=== PATIENT | female | born 1995 | race Caucasian/White ===

== ENCOUNTER 2016-10-14 15:10 | Emergency (ER) | payer MEDICAID ==
[2016-10-14 15:53] LABS: Urine Bilirubin Negative (NEGATIVE); Urine Blood Negative /ul (NEGATIVE); Urine Ketone Negative (NEGATIVE); Urine Nitrite Negative (NEGATIVE); Urine Protein Negative (NEGATIVE); Urine Specific Gravity 1.025 SP.GR. (1.005-1.010); Urine Urobilinogen Normal (NORMAL)
[2016-10-14 16:02] LABS: Urine Appearance Clear; Urine Bacteria TRACE; Urine Color Yellow; Urine RBC None Seen /hpf (0-5); Urine WBC None Seen /hpf (0-5)
[2016-10-14 17:43] VITALS: BP 146/84
--- NOTE | 2016-10-14 17:55 | ERNOTE ---
Back Pain ER HPI Date of Service: 10/14/16 Presenting Symptoms: injury/pain to back Time Seen by Provider: 10/14/16 17:54 Source: patient Exam Limitations: no limitations Immunizations: IMMUNIZATION HX Immunizations Up to Date Yes History of Influenza Vaccine No Hx Pneumococcal Vaccination No Allergies/Adverse Reactions: Allergies No Known Allergies Allergy (Verified 02/22/16 08:35) Home Medications: HOME MEDICATIONS Metaxalone [Skelaxin] 800 mg PO TID #15 tablet 10/14/16 [Last Taken Unknown] Narrative: PT HAS C/O MOSTLY RIGHT SIDED LOW BACK PAIN FOR THREE WEEKS SEEMINGLY STARTING AFTER SHE LIFTED HER 3 YO CHILD. IT HAS BEEN BOTHERING HER SINCE . SHE HAS TRIED AN OCC. TYLENOL AND OCC ICY HOT USE AND SOME STRETCHES BUT IT IS NOT BETTER. NO KNOWN TRAUMA. 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 NO RADICULAR PAIN. NO BOWEL OR BLADDER DYSFUNCTION. HER ONLY OTHER MED IS BCP. STATES SHE IS NOT . Timing: Reports: constant Quality/Severity: Reports: moderate, aching Location of pain: Reports: lower back, no radiation Activities at Onset: Reports: activity - LIFTING Recent Injury?: Reports: no Possible Precipitating Factor: Reports: lifting Modifying Factors - (Worsens): Reports: movement flexion - LIFTING , GETTING OUT OF BED OF CHAIR. Associated Symptoms: Denies: fever/chills, constipation/incontinence, problems urinating, difficulty walking, numbess/weakness in legs Prior Treament: Reports: other - ONLY INTERMITTENT HOME TREATMENT ABOVE. Review of Systems - Review of Systems Constitutional: Present: See HPI Respiratory: Present: no symptoms reported Cardiology: Present: no symptoms reported Gastrointestinal/Abdominal: Present: constipation Genitourinary: Present: no symptoms reported Musculoskeletal: Present: See HPI Skin: Present: no symptoms reported Neurological: Present: no symptoms reported Endocrine: Present: no symptoms reported Psych: Present: no symptoms reported - Patient's Past Medical History Patient History - Medical: No pertinent hx Patient History - Cardiac/Respiratory: No pertinent hx, Other Patient History - Cancer: No Hx of Cancer Patient History - Surgical Procedures: T & A Patient History - Other: None LMP (females 10-50): SHE CAN NOT REMEMBER HER LAST PERIOD LMP (Calendar): 11/27/14 - Family History Mother Family History - Medical: No pertinent hx Father Family History - Cardiac/Respiratory: History Unknown - Social History Living Situations: significant other - AND ONE CHILD Abuse History: No History of abuse Psych History: No pertinent hx Smoking Status: Current every day smoker Have you smoked in the past 12 months: Yes Alcohol Use: none Drug Use: none - Immunizations Immunizations Up to Date: Yes Hx Pneumococcal Vaccination: No History of Influenza Vaccine: No Physical Exam - Physical Exam General Appearance: Present: wd/wn, alert, no apparent distress Ears, Nose, Throat: Present: normal ENT inspection Neck: Present: normal inspection, nontender Respiratory: Present: no respiratory distress, normal breath sounds Cardiovascular/Chest: Present: regular rate, rhythm, no murmur Gastrointestinal/Abdominal: Present: normal bowel sounds, nontender, nondistended, soft - MILD TO MODERATELY OBESE. Back Exam: Present: normal inspection, normal range of motion, no CVA tenderness , no vertebral tenderness, other - SHE IS MILDLY TENDER TO PALPATION TO RIGHT PERISPINOUS MUSCLES. . Absent: vertebral tenderness Extremity Exam: Present: normal inspection, non-tender, no edema, normal range of motion Neurological Exam: Present: alert, oriented, normal mood/affect. Absent: motor weakness Skin Exam: Present: normal color, warm/dry. Absent: skin rash ED Progress - Vital Signs Vital Signs: Vital Signs 10/14/16 10/14/16 10/14/16 15:29 16:40 17:43 Temperature 36.8 C Pulse Rate 87 86 86 Respiratory 16 12 12 Rate Blood Pressure 146/77 142/72 146/84 O2 Sat by Pulse 98 98 98 Oximetry - Progress/Reassessment Chief Complaint: Back Pain Departure Clinical Impression: Strain of muscle, fascia and tendon of lower back, initial encounter - Departure Disposition: Home self-care Condition: Good Instructions: Low Back Sprain With Rehab-SportsMed, Back Pain, Adult, Easy-to- Read Additional Instructions: Gentle activity, ice for 20 mins. followed by heat for 20 mins. every 4 hrs to sore area. Use preform or bio-freeze to the sore area for comfort. Trial of ibuprofen 400-600 mg every 8 hrs for 5-7 days. Trial of muscle relaxant. use regular back stretches and try to change old lifting and posture habits to improve both. Consider chiropractor or physical therapy evaluation if not improving. Prescriptions: Metaxalone [Skelaxin] 800 mg PO TID #15 tablet
--- OUTSIDE RECORDS SUMMARY | 2016-10-14 18:18 | XMS REPORT | Continuity of Care Document ---
:1995 Author Organization [facility] ([facility]) Address [address] [place] [address] Phone [phone] Care Team Providers Name Role Phone Callum Poe Primary Care Provider [phone] Source Comments This disclosure is being made pursuant to the Care Everywhere program, applicable federal and state laws, and may not contain all informaitonavailable regarding this patient.[facility] ([facility]) Active Allergies and Adverse Reactions Not on File Current Medications Not on file Active Problems Not on file Social History Tobacco Use Types Packs/Day Years Used Date Never Assessed Plan of Care Health Maintenance Due Date Last Done Comments Hepatitis B Vaccine (1 of 3 - Primary Series) 1994 HPV Vaccine (1 of 3 - Female/Unknown 3 Dose Series) 2005 Tdap Vaccine 2005 Cervical Cancer Screening 2012 Lipid Disorder Screening 2012 MMR Vaccine 2012 Td Vaccine 2012 Varicella Vaccine (1 of 2 - Adult - No Evidence of 2012 Immunity) Influenza Vaccine: Seasonal (#1) 03/29/2016 Results from Last 3 Months Not on file
== END 2016-10-14 18:28 | disposition home or self-care (01) ==
LOC: ER 15:10
DX: S39.012A Strain of muscle, fascia and tendon of lower back, initial encounter (principal); F17.210 Nicotine dependence, cigarettes, uncomplicated; X50.1XXA Overexertion from prolonged static or awkward postures, initial encounter

== ENCOUNTER 2016-10-23 18:58 | Emergency (ER) | payer MEDICAID ==
[2016-10-23] MEDS ORDERED: ONDANSETRON 4 MG TAB.RAPDIS PO ONE ×2 (19:37→20:47)
[2016-10-23] MEDS ORDERED: ONDANSETRON 4 MG TAB.RAPDIS ONE ×2 (19:38→20:52)
--- NOTE | 2016-10-23 19:40 | ERNOTE ---
Medical Problem HPI - Narrative Date of Service: 10/23/16 - General Chief Complaint: Fever Time Seen by Provider: 10/23/16 19:32 Source: patient, RN notes reviewed Exam Limitations: no limitations - Immun/Allergies/Home Medications Immunizations: IMMUNIZATION HX Immunizations Up to Date Yes History of Influenza Vaccine No Hx Pneumococcal Vaccination No Allergies/Adverse Reactions: Allergies No Known Allergies Allergy (Verified 02/22/16 08:35) Home Medications: HOME MEDICATIONS Ondansetron [Zofran Odt] 8 mg PO Q8H PRN #12 tab 10/23/16 [Last Taken Unknown] - History of Present History Narrative: 21 y/o female ambulatory to the ED for fever, cough, body aches, and sore throat for 3 days. She also reports nausea and vomiting that began today. She denies any sick contacts. She has not taken any Tylenol since earlier this morning. She reports that she has been unable to keep down any liquids for several hours. Review of Systems - Review of Systems Constitutional: Present: fever, chills, fatigue, malaise EYE: Present: no symptoms reported ENT: Present: nose congestion, nasal drainage, sore throat. Absent: ear pain Respiratory: Present: cough. Absent: shortness of breath, wheezing Cardiology: Absent: chest pain, syncope Gastrointestinal/Abdominal: Present: nausea, vomiting. Absent: abdominal pain Genitourinary: Absent: dysuria, hematuria Musculoskeletal: Present: muscle pain. Absent: back pain Skin: Absent: rash, lesions Neurological: Present: headache, dizziness/light-headedness Endocrine: Present: no symptoms reported Hematologic/Lymphatic: Present: no symptoms reported Psych: Present: no symptoms reported - Patient's Past Medical History Patient History - Medical: No pertinent hx Patient History - Cardiac/Respiratory: No pertinent hx, Other Patient History - Cancer: No Hx of Cancer Patient History - Surgical Procedures: T & A Patient History - Other: None LMP (females 10-50): Nexplanon LMP (Calendar): 11/27/14 - Family History Mother Family History - Medical: No pertinent hx Father Family History - Cardiac/Respiratory: History Unknown - Social History Living Situations: home Abuse History: No History of abuse Psych History: No pertinent hx Smoking Status: Current every day smoker Patient requests Smoking Cessation Consult: No Initiate information on Smoking Cessation: No Alcohol Use: none Drug Use: none - Immunizations Immunizations Up to Date: Yes Hx Pneumococcal Vaccination: No History of Influenza Vaccine: No Physical Exam - Physical Exam General Appearance: Present: wd/wn, alert, no apparent distress, other - appears uncomfortable Eye Exam: Normal inspection: bilateral Ears, Nose, Throat: Present: normal ENT inspection, hearing grossly normal, normal pharynx. Absent: abnormal TM (R), abnormal TM (L), sinus pain/drainage Neck: Present: normal inspection, nontender, supple Respiratory: Present: no respiratory distress, normal breath sounds, no accessory muscle use, lungs clear Cardiovascular/Chest: Present: regular rate, rhythm, no murmur Gastrointestinal/Abdominal: Present: normal bowel sounds, nontender, nondistended, soft Back Exam: Present: normal inspection, no CVA tenderness Neurological Exam: Present: alert, oriented, normal mood/affect, no motor/ sensory deficits Skin Exam: Present: normal color, warm/dry ED Progress - Results and Orders Patient's Lab Results:: I have reviewed the patient's lab results. - Vital Signs Patient's Vital Signs:: I have reviewed the patient's vital signs. Vital Signs: Vital Signs 10/23/16 19:01 Temperature 38.5 C H Pulse Rate 98 Respiratory 18 Rate Blood Pressure 144/82 O2 Sat by Pulse 97 Oximetry - Progress/Reassessment Chief Complaint: Fever Progress:: Improved Progress Note-Subjective: Verbalizes feeling somewhat better after Zofran and Tylenol, tolerating po liquids Departure - Departure Clinical Impression: Influenza-like illness Disposition: Home self-care Condition: Stable Instructions: Influenza, Adult, [id number] Prescriptions: Ondansetron [Zofran Odt] 8 mg PO Q8H PRN #12 tab PRN Reason: Nausea
--- OUTSIDE RECORDS SUMMARY | 2016-10-23 19:46 | XMS REPORT | Continuity of Care Document ---
:1995 Author Organization [facility] ([facility]) Address [address] [place] [address] Phone [phone] Care Team Providers Name Role Phone Callum Poe Primary Care Provider [phone] Source Comments This disclosure is being made pursuant to the Care Everywhere program, applicable federal and state laws, and may not contain all informaitonavailable regarding this patient.[facility] ([facility]) Active Allergies and Adverse Reactions [...]
[2016-10-23] MEDS ORDERED: ACETAMINOPHEN 500 MG TABLET PO ONE (19:54)
[2016-10-23 20:12] LABS: Hematocrit 44.6 % (37.0-47.0); Hemoglobin 14.5 gm/dL (12.5-16.0); Mean Cell Volume 84.3 fl (78-100); Mean Corpuscular Hemoglobin 27.4 pg (27-31); Mean Corpuscular Hgb Conc 32.5 g/dl (32-36); Mean Platelet Volume 10.6 fl (6.0-9.5); Neutrophil # 7.8 K/mm3 (1.3-6.0); Neutrophil % 83.6 % (42-75.0); Platelet Count 232 K/mm3 (150-450); Red Blood Count 5.29 M/mm3 (4.2-5.4); Red Cell Distribution Width 13.5 % (11.5-14.0); White Blood Count 9.4 K/mm3 (4.0-10.5)
[2016-10-23 20:22] LABS: Urine Appearance Clear; Urine Bilirubin Negative (NEGATIVE); Urine Color Yellow; Urine Ketone 5 mg/dL (NEGATIVE)
[2016-10-23 20:23] LABS: Urine Bacteria TRACE; Urine Blood Negative /ul (NEGATIVE); Urine Nitrite Negative (NEGATIVE); Urine Protein Negative (NEGATIVE); Urine RBC None Seen /hpf (0-5); Urine Specific Gravity 1.025 SP.GR. (1.005-1.010); Urine Urobilinogen Normal (NORMAL); Urine WBC 0-5 /hpf (0-5)
[2016-10-23 20:30] LABS: Albumin * 4.3 gm/dl (3.4-5.0); Anion Gap 17.5 mmol/L (6.8-13.8); BUN/Creatinine Ratio 9.8 (9.0-21.6); Bilirubin, Total 0.3 mg/dL (0.0-1.1); Ca. Corrected For Albumin 8.4 mg/dL (8.4-10.2); Carbon Dioxide 24.7 mmol/L (24-32.6); Potassium 4.2 mmol/L (3.4-4.6); Total Protein 8.3 gm/dL (6.2-8.2)
[2016-10-23 20:57] VITALS: BP 133/77
== END 2016-10-23 20:57 | disposition home or self-care (01) ==
LOC: ER 18:58
DX: J10.1 Influenza due to other identified influenza virus with other respiratory manifestations (principal)

== ENCOUNTER 2019-11-26 13:23 | Inpatient (IN) ==
[2019-11-26] MEDS ORDERED: LIDOCAINE HCL 50 ML VIAL PERI PRN (18:07)
[2019-11-26] MEDS ORDERED: RINGER'S SOLUTION,LACTATED 1,000 ML IV PRN (18:07)
[2019-11-26] MEDS ORDERED: ONDANSETRON 4 MG TAB.RAPDIS PO PRN (18:07)
[2019-11-26] MEDS ORDERED: OXYTOCIN/DEXTROSE 5%-WATER 30 UNITS/500 ML BAG IV ONE (18:07)
[2019-11-26] MEDS ORDERED: BUTORPHANOL TARTRATE 2 MG/ML VIAL IV PRN ×2 (18:07)
[2019-11-26] MEDS ORDERED: RINGER'S SOLUTION,LACTATED 1,000 ML IV ONE (18:07)
[2019-11-26 18:36] LABS: Hematocrit 34.1 % (37.0-47.0); Mean Cell Volume 85.7 fl (78-100); Mean Corpuscular Hemoglobin 27.6 pg (27-31); Mean Corpuscular Hgb Conc 32.3 g/dl (32-36); Mean Platelet Volume 10.2 fl (8-12.5); Neutrophil # 9.7 K/mm3 (1.3-6.0); Neutrophil % 77.8 % (42-75.0); Platelet Count 258 K/mm3 (150-450); Red Blood Count 3.98 M/mm3 (4.2-5.4); Red Cell Distribution Width 15.4 % (11.5-14.0); White Blood Count 12.5 K/mm3 (4.0-10.5)
[2019-11-26 18:47] LABS: Albumin * 2.4 gm/dl (3.4-5.0); Anion Gap 13.8 mmol/L (6.8-13.8); BUN/Creatinine Ratio 14.5 (9.0-21.6); Bilirubin, Total 0.2 mg/dL (0.0-1.1); Ca. Corrected For Albumin 9.5 mg/dL (8.4-10.2); Calcium * 8.5 mg/dL (7.9-10.9); Carbon Dioxide 23.1 mmol/L (24-32.6); Potassium 3.9 mmol/L (3.4-4.6); Total Protein 6.8 gm/dL (6.2-8.2)
[2019-11-26] MEDS: MISOPROSTOL 100 MCG TABLET VG PRN ×2 (18:52→23:08)
[2019-11-26 19:09] LABS: Cocaine Ur Negative (NEGATIVE); Urine Barbiturate Negative (NEGATIVE); Urine Benzodiazepines Negative (NEGATIVE); Urine Opiates Negative (NEGATIVE); Urine PCP Negative (NEGATIVE); Urine THC Negative (NEGATIVE)
[2019-11-27] MEDS ORDERED: NALOXONE HCL 1 MG/1 ML SYRG IV PRN (07:17)
[2019-11-27] MEDS ORDERED: BUPIVACAINE HCL/0.9 % NACL/PF 250 ML EP PRN (07:17)
[2019-11-27] MEDS ORDERED: ONDANSETRON HCL/PF 2 MG/ML VIAL IV PRN (07:17)
--- NOTE | 2019-11-27 07:22 | ANES ---
Anesthesia Pre Procedure Eval Vitals/Labs: Last Vital Signs Temp 37.4 C 11/26/19 19:08 Pulse 89 11/26/19 19:08 Resp 20 11/26/19 19:08 BP 163/77 H 11/26/19 19:08 Pulse Ox 97 11/26/19 19:08 HOME MEDICATIONS vitamins no.121-iron 28 mg-folic acid 800 mcg tablet 1 tab PO DAILY tab 05/23/19 [Last Taken 11/25/19 09:00] Allergies/Adverse Reactions: Allergies Allergy/AdvReac Type Severity Reaction Status Date / Time No Known Allergies Allergy Verified 11/26/19 18:19 - Planned Procedure Planned Procedure: elective induction Medication List Reviewed:: Yes Allergies Verified: Yes Medical History (Last Reviewed 11/27/19 @ 07:20 by Rufino Byrd CRNA) Encounter for supervision of other normal , second trimester (Acute) Elevated BP without diagnosis of hypertension (Acute) Pre-eclampsia labs today and UP:CR Reassess blood pressure in 1 week (Acute) The patient is dated by today's ultrasound which is not concordant with her LMP Pap, GC/CT collected today PNL ordered today First trimester education completed Knee contusion (Acute) Otitis media of right ear (Acute) Strain of muscle, fascia and tendon of lower back, initial encounter (Acute) Influenza-like illness (Acute) Bacterial vaginitis Onset Date: ~08/31/12 Gestational hypertension Onset Date: ~04/06/13 Pelvic pain Onset Date: ~09/18/13 Upper respiratory infection Onset Date: ~08/31/12 Surgical History (Last Reviewed 11/27/19 @ 07:20 by Rufino Byrd CRNA) History of tonsillectomy Onset Date: ~07/29/11 Dr Pereira Hx of adenoidectomy Onset Date: ~07/29/11 Dr Pereira Family History (Last Reviewed 11/27/19 @ 07:20 by Rufino Byrd CRNA) Father Hypertension Grandfather Hypertension maternal Mother Alive and well - Family Anesthesia History Family History:: no untoward family reactions to anesthesia, no familial bleeding tendencies, no family history of clotting disorders, no family history of premature - Airway/Neck/Teeth Within Normal Limits:: Yes Teeth Condition: intact Neck Exam: full range of motion Mallampatti Score: 2 Thyromental (T-M) distance: > 6 cm Mandibulo Hyoid distance: > 3 cm - Respiratory Respiratory Physical: lungs clear Smoking Status: Never smoker Sleep Apnea currently treated: No Sleep Apnea by current assessment: No - Cardiovascular Cardiac History: hypertension Tolerate Activity: Fair Heart Sounds: S1 & S2, Regular - Gastrointestinal NPO since: 0 - Anesthesia Assessment and Plan ASA Class: PS, II, E Anesthesia Type Plan: Epidural - CSE for labor analgesia
[2019-11-27] MEDS ORDERED: fentaNYL CITRATE/PF 50 MCG/ML AMPUL IT SCH (07:30)
--- NOTE | 2019-11-27 07:38 | ANES ---
Post Anesthesia Discharge - Transfer of Care Transfer of Care handoff given to nurse: Yes - Discharge from PACU Discharge from PACU when meets criteria: Yes - Coomfortable post CSE.
--- NOTE | 2019-11-27 07:40 | ANES ---
Anesthesia Procedure Note Procedure Note: ANESTHESIA PROCEDURE NOTE Date of Procedure: [11/27/2019 Time of procedure: 7:20 AM. Performed by: BECKI Madrid CRNA, MSN Email Marketing Manager: Lucila Gomez RN. Preprocedure diagnosis: Active labor, labor pain. Post procedure diagnosis: Same. Procedure:Epidural for labor analgesia L3-4. Indications: Active labor, labor pain. Findings: See below. Details of the procedure: The patient was placed on the side of the bed in sitting positionand prepped with DuraPrep then draped in a sterile fashion. Lidocaine 1% was infiltrated to the skin and subcutaneous tissues at the level of the L3-4 interspace. An 18-gauge Touhy needle was used to approach the epidural space with loss of resistance technique. Once loss of resistance was achieved a 27-gauge spinal needle was passed through the epidural needle and CSF was contacted. After CSF returned, 20 mcg of fentanyl was injected in the spin al needle was removed the epidural catheter was then threaded approximately 4 cm in the epidural needle was removed. The catheter was taped in place and after careful aspiration 3 mL of 1.5% lidocaine with 1-200,000 epinephrine was injected without change in maternal heart rate or sensorium. . EBL: Minimal. Fluids: N/A. Specimen: N/A. Post procedure condition: The patient tolerated the procedure well with good relief. No complications were noted. Thank you for this consultation. Rufino Byrd CRNA, ARNP, MSN
--- NOTE | 2019-11-27 07:52 | ANES ---
Post Anesthesia Assessment - Vital Signs Vitals: Last Vital Signs Temp 37.4 C 11/26/19 19:08 Pulse 89 11/26/19 19:08 Resp 20 11/26/19 19:08 BP 163/77 H 11/26/19 19:08 Pulse Ox 97 11/26/19 19:08 Airway Patency: Normal - Mental Status Level Of Consciousness: Awake, Alert, Appropriate - Pain Level Pain Score: 0 - N/V Assessment Nausea/Vomiting Presence: None Dehydration:: No
--- NOTE | 2019-11-27 08:40 | HP ---
Chief Complaint - Chief Complaint Date of Service: 11/27/19 Time of Service: 08:33 Chief Complaint: Induction of labor for GHTN History of Present Illness: 24 year old at 37w 0d who presents to labor and delivery for a medical induction of labor due to GHTN. She denies headache, visual changes or abdominal pain. She reports regular contractions. Denies vb or lof. Fetus is active. No other concerns. Medical History (Last Updated 11/27/19 @ 08:44 by Tashia Burrows MD) Gestational hypertension Onset Date: ~04/06/13 Surgical History: Surgical History (Last Reviewed 11/27/19 @ 08:44 by Tashia Burrows MD) History of tonsillectomy Onset Date: ~07/29/11 Dr Pereira Hx of adenoidectomy Onset Date: ~07/29/11 Dr Pereira Family History: Family History (Last Reviewed 11/27/19 @ 08:44 by Tashia Burrows MD) Father Hypertension Grandfather Hypertension maternal Mother Alive and well Social History: (Last Reviewed 11/27/19 @ 08:45 by Tashia Burrows MD) Social History: Marital status: household members: spouse, children current occupational status: unemployed current occupational exposures/hazards: No Highest education level completed: high school graduate Service: No Tobacco: Smoking Status: Never smoker Smoking cigarettes per day: 3 Alcohol: alcohol intake: current alcohol intake frequency: a few times a month details: none since +UPT Substance Use: substance use type: does not use Dietary Habits: caffeine: No Pets: pets and animals: cat(s), dog(s) Exercise: frequency: 1-2 times per week Review Of Systems (GEN) - Review of Systems Generalized/Overall Review: Present: No Symptoms Reported Genitourinary: Present: Other - regular ctx Misc: All systems neg except as marked Immunizations: IMMUNIZATION HX Immunizations Up to Date Yes History of Influenza Vaccine No Hx Pneumococcal Vaccination No Allergies/Adverse Reactions: Allergies Allergy/AdvReac Type Severity Reaction Status Date / Time No Known Allergies Allergy Verified 11/26/19 18:19 Home Medications: HOME MEDICATIONS vitamins no.121-iron 28 mg-folic acid 800 mcg tablet 1 tab PO DAILY tab 05/23/19 [Last Taken 11/25/19 09:00] Exam - Exam Vital Signs: Vital Signs - Last Taken Temp 37.4 C 11/26/19 19:08 Pulse 89 11/26/19 19:08 Resp 20 11/26/19 19:08 BP 163/77 H 11/26/19 19:08 Pulse Ox 97 11/26/19 19:08 Constitutional: Present: Alert, Oriented x3, Cooperative ENT Exam: Present: normal ENT inspection, hearing grossly normal Eye Exam: bilateral eye: normal inspection Back Exam: Present: normal inspection, no CVA tenderness, no vertebral tenderness Breasts: Present: Exam deferred Respiratory: Present: lungs clear, normal breath sounds, no respiratory distress Cardiovascular/Chest: Present: regular rate, rhythm, no murmur Abdomen: Present: soft, nontender, nondistended /Rectal: Present: Other - 4-5/80/-3 AROM for a small amount of bloody fluid IUPC attempt by RN followed by IUPC placement by me Extremity: Present: non-tender, no calf tenderness Skin Exam: Present: normal color, warm/dry, no cyanosis Neurologic: Present: alert, normal mood/affect, oriented x 3 Appearance: Present: appropriate appearance, appropriate insight Eye contact: Present: cooperative, good eye contact, normal speech Thoughts: Present: normal thought pattern Diagnostic Studies: Abnormal Lab Results 11/26/19 11/26/19 11/26/19 Range/Units 18:29 18:29 Unknown WBC 12.5 H (4.0-10.5) K/mm3 RBC 3.98 L (4.2-5.4) M/mm3 Hgb 11.0 L (12.5-16.0) gm/dL Hct 34.1 L (37.0-47.0) % RDW 15.4 H (11.5-14.0) % Immature Gran % (Auto) 1.40 H (0.001-0.429) % Immature Gran # (Auto) 0.17 H (0.000-0.0310) K/mm3 Neutrophils % 77.8 H (42-75.0) % Lymphocytes % 13.2 L (20-51) % Neutrophils # 9.7 H (1.3-6.0) K/mm3 Chloride 107 H (97-106) mmol/L Carbon Dioxide 23.1 L (24-32.6) mmol/L ALT 17 L (19-67) U/L Albumin 2.4 L (3.4-5.0) gm/dl U Random Total Protein 14.0 H (0-12) mg/dL Laboratory Results WBC 12.5 K/mm3 (4.0-10.5) H 11/26/19 18: RBC 3.98 M/mm3 (4.2-5.4) L 11/26/19 18: Hgb 11.0 gm/dL (12.5-16.0) L 11/26/19 18: Hct 34.1 % (37.0-47.0) L 11/26/19 18: MCV 85.7 fl (78-100) 11/26/19 18: MCH 27.6 pg (27-31) 11/26/19 18: MCHC 32.3 g/dl (32-36) 11/26/19 18: RDW 15.4 % (11.5-14.0) H 11/26/19 18: Plt Count 258 K/mm3 (150-450) 11/26/19 18: MPV 10.2 fl (8-12.5) 11/26/19 18: Immature Gran % (Auto) 1.40 % (0.001-0.429) H 11/26/19 18: Immature Gran # (Auto) 0.17 K/mm3 (0.000-0.0310) H 11/26/19 18: Neutrophils % 77.8 % (42-75.0) H 11/26/19 18: Lymphocytes % 13.2 % (20-51) L 11/26/19 18: Monocytes % 6.8 % (0.0-9) 11/26/19 18: Eosinophils % 0.6 % (0.0-3.0) 11/26/19 18: Basophils % 0.2 % (0.0-1.0) 11/26/19 18: Nucleated RBC % 0.0 k/mm3 (0-1) 11/26/19 18: Neutrophils # 9.7 K/mm3 (1.3-6.0) H 11/26/19 18: Lymphocytes # 1.64 k/mm3 (1.5-3.5) 11/26/19 18: Monocytes # 0.9 k/mm3 (0.0-1.0) 11/26/19 18: Eosinophils # 0.1 k/mm3 (0.0-0.7) 11/26/19 18: Absolute Basophils 0.0 k/mm3 (0.0-0.1) 11/26/19 18:29 Sodium 140 mmol/L (132-142) 11/26/19 18: Plasma Sodium 140 mmol/L (130-142) 11/26/19 18: Potassium 3.9 mmol/L (3.4-4.6) 11/26/19 18: Chloride 107 mmol/L (97-106) H 11/26/19 18: Carbon Dioxide 23.1 mmol/L (24-32.6) L 11/26/19 18: Anion Gap 13.8 mmol/L (6.8-13.8) 11/26/19 18: BUN 11 mg/dL (3-23) D 11/26/19 18: Creatinine 0.76 mg/dL (0.4-1.4) 11/26/19 18: Est GFR (Non-Af Amer) 99 mL/min (60-130) 11/26/19 18: BUN/Creatinine Ratio 14.5 (9.0-21.6) 11/26/19 18: Random Glucose 99 mg/dL (70-110) 11/26/19 18: Calcium 8.5 mg/dL (7.9-10.9) 11/26/19 18: Calcium Adj for Albumin 9.5 mg/dL (8.4-10.2) 11/26/19 18: Total Bilirubin 0.2 mg/dL (0.0-1.1) 11/26/19 18: AST 14 U/L (0-48) 11/26/19 18: ALT 17 U/L (19-67) L 11/26/19 18: Alkaline Phosphatase 134 U/L (50-170) 11/26/19 18:29 Total Protein 6.8 gm/dL (6.2-8.2) 11/26/19 18: Albumin 2.4 gm/dl (3.4-5.0) L 11/26/19 18:29 Ur Random Creatinine 77.0 mg/dL (60-200) 11/26/19 Unknown U Random Total Protein 14.0 mg/dL (0-12) H 11/26/19 Unknown U [place] Prot/Creat Ratio 182 mg/gm (0-199) 11/26/19 Unknown Urine Opiates Screen Negative (NEGATIVE) 11/26/19 18:19 Barbiturate Screen Negative (NEGATIVE) 11/26/19 18:19 Ur Phencyclidine Scrn Negative (NEGATIVE) 11/26/19 18:19 Urine Amphetamine Negative (NEGATIVE) 11/26/19 18:19 U Benzodiazepines Scrn Negative (NEGATIVE) 11/26/19 18:19 Urine Cocaine Screen Negative (NEGATIVE) 11/26/19 18:19 Urine Marijuana (THC) Negative (NEGATIVE) 11/26/19 18:19 Blood Type O Positive 11/26/19 18:29 Antibody Screen Negative 11/26/19 18:29 Assessment/Plan - Narrative Narrative: 24 year old at 37w 0d 1. IOL due to GHTN: BPs have been mild to severe range but since the patient has had her epidural all her blood pressures are mild range. Normal pre-eclampsia labs on admission to labor and delivery including UP:CR. The patient is otherwise asymptomatic and on bed rest. FHT cat 1 2. GBS negative: prophylaxis not indicated - Assessment/Plan (1) Gestational hypertension Problem: Acute Qualifiers: Trimester: third trimester Qualified Code(s): O13.3 - Gestational [-induced] hypertension without significant proteinuria, third trimester
[2019-11-27] MEDS ORDERED: BISACODYL 10 MG SUPP.RECT RC PRN (10:21)
[2019-11-27] MEDS ORDERED: GLYCERIN/WITCH HAZEL LEAF 40 APPL BOX TP PRN (10:21)
[2019-11-27] MEDS ORDERED: BENZOCAINE/MENTHOL 81 SPRAY CAN TP PRN (10:21)
[2019-11-27] MEDS ORDERED: HYDROCORTISONE 30 APPL TUBE TP PRN (10:21)
[2019-11-27] MEDS ORDERED: SENNOSIDES 8.6 MG TABLET PO PRN (10:21)
[2019-11-27] MEDS ORDERED: oxyCODONE HCL/ACETAMINOPHEN 1 TAB TABLET PO PRN (10:21)
[2019-11-27] MEDS ORDERED: OXYTOCIN/DEXTROSE 5%-WATER 30 UNITS/500 ML BAG IV ONE (10:21)
--- NOTE | 2019-11-27 10:21 | OR ---
Operative Report - Dictated Report Narrative: Date of delivery: 11/27/2019 Time of delivery: 1007 Gender: Male weight: 2862 grams APGARS: 8/9 Procedure: Description of the procedure: The patient is a 24 year old at 37w 0d who underwent a medical IOL for GHTN. She progressed to complete dilation after administration of 2 doses of cytotec and Pitocin at 2 milliunits/min. She delivered a viable male infant in RUBIN presentation over an intact perineum. A nuchal cord was present which could not be easily reduced and thus it was cut at the perineum. The shoulders delivered without any difficulty followed by the rest of the . The placenta delivered by expression and appeared intact. A surface clots was noted on the placenta consistent with the patient's vaginal bleeding and likely placental abruption. The labia and perineum were examined and appeared intact. EBL: 150 mL Complications: none Specimens: placenta to pathology History for MU Definition: * The number of deliveries resulting in a live the patient experienced prior to current hospitalization * The previous delivery of live twins or any live multiple gestation is considered one live event. *If primagravida or nulliparous is documented select zero for the number of previous live births. Live Events: 1
[2019-11-27] MEDS: IBUPROFEN 800 MG TABLET PO PRN ×3 (10:54→22:08)
[2019-11-27] MEDS: DOCUSATE SODIUM 100 MG CAPSULE PO SCH (21:30)
[2019-11-28] MEDS: DOCUSATE SODIUM 100 MG CAPSULE PO SCH ×2 (08:52→20:46)
[2019-11-28] MEDS: IBUPROFEN 800 MG TABLET PO PRN ×2 (08:52→18:33)
--- NOTE | 2019-11-28 11:42 | PN ---
Subjective - Date and Time Seen Date: 11/28/19 Time: 11:41 Subjective Narrative: Patient without complaints Objective Objective Narrative: See vital signs - Review of Systems Generalized/Overall Review: Reports: No Symptoms Reported Misc: All systems neg except as marked - Vitals Vitals: Last Vital Signs Temp 36.8 C 11/28/19 06:30 Pulse 73 11/28/19 11:26 Resp 20 11/28/19 11:26 BP 138/72 11/28/19 11:26 Pulse Ox 97 11/28/19 11:26 - Exam Constitutional: Present: Alert, Oriented x3, Cooperative, No distress Abdomen: Present: soft, nontender, nondistended Extremity: Present: non-tender, no calf tenderness Skin Exam: Present: normal color, warm/dry, no cyanosis Appearance: Present: appropriate appearance, appropriate insight Eye contact: Present: cooperative, good eye contact, normal speech Thoughts: Present: normal thought pattern Cauti Physician Documentation - Urinary Catheter Management Urethral (Onofre) Urethral Indwelling: No Date of Insertion: 11/27/19 Time of Insertion: 08:01 Date of Removal: 11/27/19 Time of Removal: 10:03 Assessment/Plan Plan Narrative: PPD 1 s/p Doing well IOL for GHTN: BP is in the mild to normal range Discharge tomorrow - Problems/Diagnosis (1) Gestational hypertension Problem: Acute Qualifiers: Trimester: third trimester Qualified Code(s): O13.3 - Gestational [-induced] hypertension without significant proteinuria, third trimester
[2019-11-29] MEDS: NIFEdipine 30 MG TAB.SR.24H PO SCH ×2 (07:42→08:03)
[2019-11-29] MEDS: DOCUSATE SODIUM 100 MG CAPSULE PO SCH (08:03)
[2019-11-29 10:03] VITALS: BP 137/83
--- NOTE | 2019-11-29 10:48 | PN ---
Subjective - Date and Time Seen Date: 11/29/19 Time: 10:46 Subjective Narrative: Patient without complaints Objective Objective Narrative: See vital signs - Review of Systems Generalized/Overall Review: Reports: No Symptoms Reported Misc: All systems neg except as marked - Vitals Vitals: Last Vital Signs Temp 36.5 C 11/29/19 06:43 Pulse 65 11/29/19 08:03 Resp 18 11/29/19 06:43 BP 137/83 11/29/19 10:02 Pulse Ox 100 11/29/19 06:43 - Exam Constitutional: Present: Alert, Oriented x3, Cooperative, No distress Extremity: Present: non-tender, no calf tenderness Skin Exam: Present: normal color, warm/dry, no cyanosis Appearance: Present: appropriate appearance, appropriate insight Eye contact: Present: cooperative, good eye contact, normal speech Thoughts: Present: normal thought pattern Cauti Physician Documentation - Urinary Catheter Management Urethral (Onofre) Urethral Indwelling: No Date of Insertion: 11/27/19 Time of Insertion: 08:01 Date of Removal: 11/27/19 Time of Removal: 10:03 Assessment/Plan Plan Narrative: PPD 2 s/p Doing well GHTN: Started on procardia 60mgXL PO daily. BP check in 1 week Discharge today Detailed discharge instructions given to patient along with pre-eclampsia precautions - Problems/Diagnosis (1) Gestational hypertension Problem: Acute Qualifiers: Trimester: third trimester Qualified Code(s): O13.3 - Gestational [-induced] hypertension without significant proteinuria, third trimester
== END 2019-11-29 11:20 | disposition home or self-care (01) | DRG 807 ==
LOC: OB 17:53
PROVIDERS: ADMIT Obstetrics & Gynecology; ATTEND Obstetrics & Gynecology
DX: O45.93 Premature separation of placenta, unspecified, third trimester; Z3A.37 37 weeks gestation of pregnancy; O13.4 Gestational [pregnancy-induced] hypertension without significant proteinuria, complicating childbirth; Z37.0 Single live birth
CPT/HCPCS: 36415; 59025; 80053; 80307; 82570; 84155; 84156; 85025; 86850; 88307; 88888